=== PATIENT | male | born 2000 | race Caucasian/White ===

== ENCOUNTER 2022-06-22 06:07 | Emergency (ER) | payer SELFPAY ==
[~2022-06-22] VITALS: Ht 170.2 cm; Wt 75.0 kg
[2022-06-22 06:22] VITALS: BP 125/83
[2022-06-22] MEDS ORDERED: ACETAMINOPHEN 325MG TABLET PO ONE (06:45)
== END 2022-06-22 06:52 ==
LOC: ER 06:07
DX: Z02.79 Encounter for issue of other medical certificate (principal); M25.531 Pain in right wrist
CPT/HCPCS: 99283